=== PATIENT | female | born 2000 | race Caucasian/White ===

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

== ENCOUNTER → 2018-02-14 | Outpatient (CLI) | payer OTHER ==
[2018-02-14 10:32] LABS: CONTROL LINE HCG INT CTR LINE PRESENT; HCG, SERUM QUALITATIVE NEGATIVE (NEGATIVE)
== END ==
LOC: M LAB 09:21
DX: Z32.00 Encounter for pregnancy test, result unknown (principal)
CPT/HCPCS: 84703

== ENCOUNTER → 2018-08-07 | Outpatient (REF) | payer OTHER ==
[~2018-08-07] MED LIST: KETO10TAB PO
[2018-08-07 12:17] LABS: FOLLICLE STIMULATING HORMONE 11.1 mIU/mL; FREE T4 1.08 NG/DL (0.78-1.33); LUTEINIZING HORMONE 12.7 mIU/mL; PROLACTIN 32.6 NG/ML; THYROID STIMULATING HORMONE 1.96 uIU/ML (0.463-3.98)
[2018-08-07 14:06] LABS: HEMOGLOBIN A1c 5.1 %
[2018-08-09 00:07] LABS: DEHYDROEPIANDROSTERONE SULFATE 374.1 ug/dL (110.0-431.7); TESTOSTERONE FREE (DIRECT) 4.7 pg/mL (0.0-4.2)
== END ==
LOC: M SFHCLERA 08:57
PROVIDERS: ATTEND Family Medicine
DX: E28.2 Polycystic ovarian syndrome (principal)

== ENCOUNTER → 2018-11-08 | Outpatient (CLI) | payer OTHER ==
[2018-11-08 12:46] LABS: PROLACTIN 14.8 NG/ML
== END ==
LOC: M LAB 10:44
PROVIDERS: ATTEND Nurse Practitioner Family
DX: E28.2 Polycystic ovarian syndrome (principal)

== ENCOUNTER → 2020-09-25 | Outpatient (CLI) | payer OTHER ==
[2020-09-25 14:19] LABS: BLOOD UREA NITROGEN 13 MG/DL (7-18); CALCIUM LEVEL 10.2 MG/DL (8.5-10.1); CARBON DIOXIDE LEVEL 25 MEQ/L (21-32); CHLORIDE LEVEL 107 MEQ/L (98-107); CHOLESTEROL LEVEL 237 MG/DL (<200); CREATININE FOR GFR 0.75 MG/DL (0.55-1.30); GLOMERULAR FILTRATION RATE > 60.0 (>60); GLUCOSE, FASTING 89 MG/DL (70-100); HDL CHOLESTEROL 60 MG/DL (>40); LDL CHOLESTEROL 142 MG/DL (<100); NON-HDL-C 177 MG/DL; POTASSIUM SERUM 4.3 MEQ/L (3.5-5.1); SODIUM LEVEL 140 MEQ/L (136-145); TRIGLYCERIDES LEVEL 177 MG/DL (<150)
== END ==
LOC: M LAB 12:28
PROVIDERS: ATTEND Family Medicine
DX: E28.2 Polycystic ovarian syndrome (principal)

== ENCOUNTER → 2020-09-25 | Outpatient (CLI) | payer OTHER ==
[2020-09-25 14:03] LABS: HEMOGLOBIN A1c 5.2 %
[2020-09-25 14:10] LABS: ALBUMIN 4.1 GM/DL (3.2-5.2); ALT/SGPT 39 U/L (12-78); BILIRUBIN,TOTAL 0.5 MG/DL (0.2-1.0); BLOOD UREA NITROGEN 13 MG/DL (7-18); CALCIUM LEVEL 9.9 MG/DL (8.5-10.1); CARBON DIOXIDE LEVEL 26 MEQ/L (21-32); CHLORIDE LEVEL 107 MEQ/L (98-107); CHOLESTEROL LEVEL 243 MG/DL (<200); CHOLESTEROL RISK RATIO 3.681 (<5); GLOMERULAR FILTRATION RATE > 60.0 (>60); GLUCOSE, FASTING 86 MG/DL (70-100); HDL CHOLESTEROL 66 MG/DL (>40); LDL CHOLESTEROL 141 MG/DL (<100); NON-HDL-C 177 MG/DL; POTASSIUM SERUM 4.2 MEQ/L (3.5-5.1); SODIUM LEVEL 140 MEQ/L (136-145); TRIGLYCERIDES LEVEL 180 MG/DL (<150)
[2020-09-25 14:11] LABS: TESTOSTERONE 56 NG/DL (14-76)
== END ==
LOC: M LAB 12:33
PROVIDERS: ATTEND Nurse Practitioner Family
DX: E28.2 Polycystic ovarian syndrome (principal)

== ENCOUNTER → 2021-04-16 | Outpatient (CLI) | payer OTHER | LOC: M LAB 13:49 | PROVIDERS: ATTEND Nurse Practitioner Family | DX: E28.2 Polycystic ovarian syndrome (principal) ==

== ENCOUNTER → 2021-05-12 | Outpatient (REF) | payer MEDICAID, OTHER | LOC: M LAB REF 17:29 | PROVIDERS: ATTEND Physician Assistant | DX: D22.61 Melanocytic nevi of right upper limb, including shoulder (principal) ==

== ENCOUNTER → 2021-10-07 | Outpatient (REF) | payer OTHER, MEDICAID ==
[2021-10-07 19:07] LABS: GC DNA AMPLIFICATION NEGATIVE (NEGATIVE)
== END ==
LOC: M PLALAB 14:05
PROVIDERS: ATTEND Advanced Practice Midwife
DX: Z12.4 Encounter for screening for malignant neoplasm of cervix (principal); Z11.3 Encounter for screening for infections with a predominantly sexual mode of transmission

== ENCOUNTER 2024-06-16 11:39 | Emergency (ER) | payer MEDICAID, OTHER, SELFPAY ==
[~2024-06-16] VITALS: Ht 154.9 cm; Wt 95.5 kg
[2024-06-16 12:31] LABS: BASO # 0.1 10^3/uL (0.0-0.2); BASO % 0.7 % (0.0-1.0); EOS # 0.3 10^3/uL (0.0-0.5); EOS % 2.1 % (0.0-3.0); HEMATOCRIT 43.4 % (36.0-47.0); HEMOGLOBIN 14.7 g/dl (12.0-15.5); LYMPH # 3.1 10^3/uL (1.5-5.0); LYMPH % 23.6 % (24.0-44.0); MEAN CORPUSCULAR HEMOGLOBIN 30.4 pg (27.0-33.0); MEAN CORPUSCULAR HGB CONC 33.9 g/dl (32.0-36.5); MEAN CORPUSCULAR VOLUME 89.7 fl (80.0-96.0); MONO # 0.8 10^3/uL (0.0-0.8); MONO % 5.9 % (2.0-8.0); NEUTROPHILS # 8.8 10^3/uL (1.5-8.5); PLATELET COUNT, AUTOMATED 354 10^3/uL (150-450); RED BLOOD COUNT 4.84 10^6/uL (4.00-5.40); WHITE BLOOD COUNT 13.1 10^3/uL (4.0-10.0)
[2024-06-16 13:01] LABS: BLOOD UREA NITROGEN 15 MG/DL (9-23); CALCIUM LEVEL 9.5 MG/DL (8.5-10.1); CARBON DIOXIDE LEVEL 23 MMOL/L (20-31); CHLORIDE LEVEL 106 MMOL/L (98-107); CREATININE FOR GFR 0.66 MG/DL (0.55-1.30); GLOMERULAR FILTRATION RATE > 60.0 (>60); GLUCOSE, FASTING 145 MG/DL (60-100); POTASSIUM SERUM 4.2 MMOL/L (3.5-5.1); SODIUM LEVEL 141 MMOL/L (136-145)
[2024-06-16 13:04] LABS: THYROID STIMULATING HORMONE 4.303 uIU/ML (0.55-4.78)
[2024-06-16 13:22] LABS: MAGNESIUM LEVEL 1.8 MG/DL (1.8-2.4)
[2024-06-16] MEDS: ONDANSETRON 4MG 2ML VIAL IV ONE (13:32)
[2024-06-16] MEDS: FLUORESCEIN OPHTH 1MG STRIP OS ONE (13:59)
[2024-06-16] MEDS: ACETAMINOPHEN 325 MG TAB PO ONE (14:23)
[2024-06-16 14:33] VITALS: BP 111/59; TEMP 96.5; O2SAT 97
== END 2024-06-16 14:35 | disposition home or self-care (01) ==
LOC: M ED 11:39
DX: R55 Syncope and collapse (principal); H11.32 Conjunctival hemorrhage, left eye; Z79.899 Other long term (current) drug therapy
CPT/HCPCS: 70450; 72125; 80048; 83735; 84443; 84702; 85025; 93005; 93041; 94760; 96374; 99284; J2405

== ENCOUNTER → 2024-12-04 | Outpatient (CLI) | payer OTHER ==
[2024-12-04 09:23] LABS: BASO # 0.1 10^3/uL (0.0-0.2); BASO % 0.9 % (0.0-1.0); EOS # 0.3 10^3/uL (0.0-0.5); EOS % 2.5 % (0.0-3.0); LYMPH # 3.3 10^3/uL (1.5-5.0); LYMPH % 32.1 % (24.0-44.0); MONO # 0.8 10^3/uL (0.0-0.8); MONO % 7.3 % (2.0-8.0); NEUTROPHILS # 5.7 10^3/uL (1.5-8.5); NEUTROPHILS % 55.6 % (36.0-66.0); PLATELET COUNT, AUTOMATED 317 10^3/uL (150-450)
[2024-12-04 09:51] LABS: IRON (FE) 72 UG/DL (50-170); PERCENT SATURATION 21.6 % (13.2-45.0)
[2024-12-04 09:52] LABS: ALT/SGPT 41 U/L (7.0-40); AST/SGOT 25 U/L (<34); CALCIUM LEVEL 10.0 MG/DL (8.5-10.1); CARBON DIOXIDE LEVEL 26 MMOL/L (20-31); CHLORIDE LEVEL 105 MMOL/L (98-107); CHOLESTEROL LEVEL 238 MG/DL (<200); CHOLESTEROL RISK RATIO 4.11 (<5); CREATININE FOR GFR 0.65 MG/DL (0.55-1.30); GLOMERULAR FILTRATION RATE > 90.0 (>60); LDL CHOLESTEROL 114.6 MG/DL (<100); NON-HDL-C 180.2 MG/DL; POTASSIUM SERUM 4.4 MMOL/L (3.5-5.1); SODIUM LEVEL 141 MMOL/L (136-145); TOTAL 25(OH) VITAMIN D 17.8 NG/ML (20.0-100.0); TRIGLYCERIDES LEVEL 328 MG/DL (<150); VITAMIN B12 LEVEL 444 PG/ML (211-911)
[2024-12-04 09:54] LABS: FREE T4 0.99 NG/DL (0.89-1.76)
[2024-12-04 10:19] LABS: ESTIMATED AVERAGE GLUCOSE 105.0 MG/DL (60-110)
== END ==
LOC: M LAB 08:44
PROVIDERS: ATTEND Family Medicine
DX: Z00.00 Encounter for general adult medical examination without abnormal findings (principal); D72.829 Elevated white blood cell count, unspecified; E28.2 Polycystic ovarian syndrome; R73.01 Impaired fasting glucose

== ENCOUNTER 2025-03-21 07:32 | Emergency (ER) | payer OTHER ==
[~2025-03-21] VITALS: Ht 154.9 cm; Wt 100.9 kg
[2025-03-21 09:16] LABS: BASO # 0.1 10^3/uL (0.0-0.2); BASO % 0.7 % (0.0-1.0); EOS # 0.0 10^3/uL (0.0-0.5); EOS % 0.3 % (0.0-3.0); LYMPH # 1.8 10^3/uL (1.5-5.0); LYMPH % 18.7 % (24.0-44.0); MONO # 0.5 10^3/uL (0.0-0.8); MONO % 5.4 % (2.0-8.0); NEUTROPHILS # 7.0 10^3/uL (1.5-8.5); NEUTROPHILS % 74.1 % (36.0-66.0); PLATELET COUNT, AUTOMATED 378 10^3/uL (150-450)
[2025-03-21 09:27] LABS: INR 0.89
[2025-03-21 09:53] LABS: ALT/SGPT 41 U/L (7.0-40); AST/SGOT 27 U/L (<34); CALCIUM LEVEL 9.9 MG/DL (8.5-10.1); CARBON DIOXIDE LEVEL 21 MMOL/L (20-31); CHLORIDE LEVEL 105 MMOL/L (98-107); CK-MB VALUE MASS < 1.0 NG/ML (<3.6); CPK CREATINE PHOSPHOKINASE 124 U/L (34-145); CREATININE FOR GFR 0.70 MG/DL (0.55-1.30); GLOMERULAR FILTRATION RATE > 90.0 (>60); POTASSIUM SERUM 4.3 MMOL/L (3.5-5.1); SODIUM LEVEL 140 MMOL/L (136-145)
[2025-03-21 09:55] LABS: FREE T4 1.22 NG/DL (0.89-1.76)
[2025-03-21 10:05] LABS: HCG, SERUM QUALITATIVE NEGATIVE (NEGATIVE)
[2025-03-21] MEDS: NS (Normal Saline) 0.9% 1,000 ML IV ONE (14:25)
[2025-03-21] MEDS ORDERED: ISOVUE-370 76% 100 ML VIAL As Ordered ONE (14:31)
[2025-03-21] MEDS ORDERED: HOLTER MONITOR XX (15:42)
[2025-03-21 15:58] VITALS: BP 134/65; TEMP 98.1; O2SAT 98
== END 2025-03-21 16:03 | disposition home or self-care (01) ==
LOC: M ED 07:32
DX: I49.8 Other specified cardiac arrhythmias (principal)
CPT/HCPCS: 71046; 71275; 80048; 80076; 82550; 82553; 83690; 84439; 84443; 84484; 84703; 85025; 85610; 85730; 93005; 96360; 99284; Q9967

== ENCOUNTER → 2025-03-26 | Outpatient (CLI) | payer OTHER ==
[~2025-03-26] MED LIST changes: +HOLTER MONITOR XX
== END ==
LOC: M EKG 08:50
PROVIDERS: ATTEND Physician Assistant
DX: R00.2 Palpitations (principal)